=== PATIENT | female | born 1965 | race Caucasian/White ===

== ENCOUNTER 2023-01-16 07:51 | Inpatient (IN) | payer BC ==
[~2023-01-16] VITALS: Ht 165.1 cm; Wt 94.3 kg
[2023-01-16] MEDS ORDERED: ALBUTEROL (0.083%) 2.5MG/3ML NEB HHN STA (08:05)
[2023-01-16 09:59] LABS: CHLORIDE 108 mEq/L (98-107)
[2023-01-16 10:03] LABS: HEMOGLOBIN. 12.4 g/dL (12.0-16.0); MEAN CORPUSCULAR HEMOGLOBIN 29.4 pg (28.0-32.0); MEAN CORPUSCULAR VOLUME 85.4 fL (81.0-99.0); RED BLOOD CELL COUNT 4.22 mill/uL (4.2-5.4); RED CELL DISTRIBUTION WIDTH 13.7 % (11.6-14.6)
[2023-01-16 10:26] LABS: MEAN PLATELET VOLUME 9.6 fl (7.4-10.4); PLATELET 195 x1000/uL (130-400); PLATELET ESTIMATE NORMAL
[2023-01-16 15:31] VITALS: BP 142/61
[2023-01-16 16:00] VITALS: BP 142/61
[2023-01-16] MEDS ORDERED: MAGNESIUM/ALUMINUM HYDROXIDE/SIMETHICONE 30ML UDC PO PRN (16:00)
[2023-01-16] MEDS ORDERED: BENZONATATE 100MG CAPSULE PO SCH ×2 (16:00→21:00)
[2023-01-16] MEDS ORDERED: CLONIDINE 0.1MG TABLET PO PRN (16:00)
[2023-01-16] MEDS ORDERED: HYDROCODONE/ACETAMINOPHEN 5/325MG TABLET PO PRN (16:00)
[2023-01-16] MEDS ORDERED: ACETAMINOPHEN 325MG TABLET PO PRN ×2 (16:00)
[2023-01-16] MEDS: DEXT 5%/0.45% NACL 1000ML 1,000 ML IV SCH (16:00)
[2023-01-16] MEDS ORDERED: DOCUSATE SODIUM 100MG CAPSULE PO PRN (16:00)
[2023-01-16] MEDS ORDERED: ONDANSETRON HCL 4MG/2ML INJ IV PRN (16:00)
[2023-01-16] MEDS: GUAIFENESIN-DM 200MG-20MG/10ML UDC PO SCH ×2 (17:25→20:35)
[2023-01-16] MEDS: CEFTRIAXONE 1,000 MG in DEXTROSE 5% WATER 50 ML IV SCH (17:46)
[2023-01-16] MEDS: ENOXAPARIN 40MG/0.4ML SYR SUBCUT SCH (18:09)
[2023-01-16] MEDS: AZITHROMYCIN 500 MG in DEXT 5% WATER 250 ML IV SCH (18:12)
[2023-01-16 18:34] LABS: CREATINE KINASE MB FRACTION 3.2 ng/mL (0.5-3.6)
[2023-01-16 20:00] VITALS: BP 106/80
[2023-01-16] MEDS: FAMOTIDINE 20MG TABLET PO SCH (20:35)
[2023-01-16] MEDS: PREDNISONE 20MG TABLET PO SCH (20:52)
[2023-01-16] MEDS: BUDESONIDE 0.5MG/2ML NEB HHN SCH (21:24)
[2023-01-16] MEDS: IPRATROPIUM/ALBUTEROL 0.5-3(2.5)MG/3ML NEB HHN SCH (21:24)
[2023-01-17] VITALS: BP 122/68
[2023-01-17] MEDS: IPRATROPIUM/ALBUTEROL 0.5-3(2.5)MG/3ML NEB HHN SCH ×5 (00:51→19:44)
[2023-01-17 02:17] LABS: CREATINE KINASE MB FRACTION 2.7 ng/mL (0.5-3.6)
[2023-01-17 04:00] VITALS: BP 121/68
[2023-01-17] MEDS: GUAIFENESIN-DM 200MG-20MG/10ML UDC PO SCH ×4 (04:00→10:32)
[2023-01-17 05:37] LABS: CHLORIDE 110 mEq/L (98-107)
[2023-01-17 05:51] LABS: BASOPHILS % 0.3 % (0.0-2.0); CREATINE KINASE 181 IU/L (26-192); CREATINE KINASE MB FRACTION 2.2 ng/mL (0.5-3.6); HDL CHOLESTEROL 74 mg/dL (40-59); HEMOGLOBIN. 11.7 g/dL (12.0-16.0); LDL CHOLESTEROL 60 mg/dL (5-100); LYMPHOCYTES % 15.1 % (20.0-50.0); MEAN CORPUSCULAR HEMOGLOBIN 29.6 pg (28.0-32.0); MEAN CORPUSCULAR VOLUME 85.7 fL (81.0-99.0); MEAN PLATELET VOLUME 9.8 fl (7.4-10.4); MONOCYTES % 1.9 % (2.0-8.0); NEUTROPHILS % 82.7 % (40.0-76.0); PLATELET 220 x1000/uL (130-400); RED BLOOD CELL COUNT 3.96 mill/uL (4.2-5.4); T4 FREE 1.23 ng/dL (0.76-1.46)
[2023-01-17] MEDS: DEXT 5%/0.45% NACL 1000ML 1,000 ML IV SCH ×2 (06:15→17:42)
[2023-01-17 08:00] VITALS: BP 132/77
[2023-01-17] MEDS: PREDNISONE 20MG TABLET PO SCH (08:53)
[2023-01-17] MEDS: FAMOTIDINE 20MG TABLET PO SCH ×2 (08:53→20:48)
[2023-01-17] MEDS: BUDESONIDE 0.5MG/2ML NEB HHN SCH ×2 (09:40→19:44)
[2023-01-17] MEDS ORDERED: NALOXONE HCL 0.4MG/ML VIAL IV PRN (10:15)
[2023-01-17 12:00] VITALS: BP 119/75
[2023-01-17] MEDS ORDERED: GUAIFENESIN/CODEINE 100-10MG/5ML UDC PO PRN (13:45)
[2023-01-17] MEDS: BENZONATATE 100MG CAPSULE PO SCH ×3 (14:00→20:48)
[2023-01-17] MEDS: GUAIFENESIN/CODEINE 200-20MG/10ML UDC PO SCH ×2 (14:22→20:47)
[2023-01-17] MEDS ORDERED: P20 MT (15:14)
[2023-01-17] MEDS ORDERED: ALBU6.7H3 INH (15:14)
[2023-01-17 16:05] VITALS: BP 117/67
[2023-01-17] MEDS: CEFTRIAXONE 1,000 MG in DEXTROSE 5% WATER 50 ML IV SCH (16:52)
[2023-01-17] MEDS: ENOXAPARIN 40MG/0.4ML SYR SUBCUT SCH (17:42)
[2023-01-17] MEDS: AZITHROMYCIN 500 MG in DEXT 5% WATER 250 ML IV SCH (17:42)
[2023-01-17 20:00] VITALS: BP 114/58
[2023-01-18] VITALS: BP 99/54
[2023-01-18] MEDS: GUAIFENESIN/CODEINE 200-20MG/10ML UDC PO SCH ×2 (01:42→08:53)
[2023-01-18] MEDS: IPRATROPIUM/ALBUTEROL 0.5-3(2.5)MG/3ML NEB HHN SCH ×2 (01:57→08:34)
[2023-01-18 04:00] VITALS: BP 122/60
[2023-01-18] MEDS: BENZONATATE 100MG CAPSULE PO SCH (05:42)
[2023-01-18 07:55] LABS: HEMATOCRIT 33.2 % (36.0-48.0); HEMOGLOBIN 11.3 g/dL (12.0-16.0); MEAN CORPUSCULAR HEMOGLOBIN 29.2 pg (28.0-32.0); MEAN CORPUSCULAR VOLUME 85.8 fL (81.0-99.0); PLATELET 213 x1000/uL (130-400); RED BLOOD CELL COUNT 3.87 mill/uL (4.2-5.4); RED CELL DISTRIBUTION WIDTH 14.5 % (11.6-14.6)
[2023-01-18 08:00] VITALS: BP 126/73
[2023-01-18] MEDS: DEXT 5%/0.45% NACL 1000ML 1,000 ML IV SCH (08:00)
[2023-01-18 08:32] LABS: CHLORIDE 110 mEq/L (98-107)
[2023-01-18] MEDS: BUDESONIDE 0.5MG/2ML NEB HHN SCH (08:34)
[2023-01-18] MEDS: PREDNISONE 20MG TABLET PO SCH (08:53)
[2023-01-18] MEDS: FAMOTIDINE 20MG TABLET PO SCH (08:53)
[2023-01-18 12:00] VITALS: BP 107/83
[2023-01-18] MEDS ORDERED: LEVO250T74 PO (12:36)
[2023-01-18 13:39] VITALS: BP 107/83
[2023-01-18] MEDS ORDERED: AZELASTINE HCL 137MCG/SPRAY NASAL PUMP BOTHNSTRLS SCH (21:00)
[2023-01-19] MEDS ORDERED: AZITHROMYCIN 500 MG TABLET PO SCH (09:00)
== END 2023-01-18 14:22 | disposition home or self-care (01) | DRG 202 ==
LOC: ER 08:13 → 3WST 13:01 → EDBEDREQTM 13:17 → EDBEDREQ 13:17
PROVIDERS: ADMIT Internal Medicine; ATTEND Internal Medicine
DX: J20.9 Acute bronchitis, unspecified (principal); J96.00 Acute respiratory failure, unspecified whether with hypoxia or hypercapnia; I10 Essential (primary) hypertension; R77.8 Other specified abnormalities of plasma proteins; J32.9 Chronic sinusitis, unspecified; K21.9 Gastro-esophageal reflux disease without esophagitis; Z79.899 Other long term (current) drug therapy; Z86.16 Personal history of COVID-19; Z87.891 Personal history of nicotine dependence; Z82.49 Family history of ischemic heart disease and other diseases of the circulatory system
CPT/HCPCS: 36415; 70490; 71045; 71250; 80048; 80053; 80061; 82550; 82553; 83880; 84439; 84443; 84481; 84484; 85025; 85027; 85379; 93005; 93306; 94640; 99285; J0456; J0696; J1650; J7060; J7512; J7626